=== PATIENT | female | born 1940 | race Caucasian/White ===

== ENCOUNTER 2017-03-04 09:30 | Emergency (ER) | payer MEDICARE, OTHER ==
[~2017-03-04] VITALS: Ht 167.6 cm; Wt 86.4 kg
[~2017-03-04 09:30] MED LIST: ALORA0.025 MG TOP; ASPIRIN CHEWABL81 MG PO; ATENOLOL50 MG PO; CALCIUM + D600 MG PO; CALCIUM 1200 PO; CALCIUM600 M3 PO; CLARITIN10 M1 PO; DETROL LA4 MG PO; FIBER THERAP0.52 GM PO; FISH OIL1200 MG OR; LEVOTHYROXIN88 MC1 PO; LIPITOR10 MG PO; LOSARTAN POT50 MG PO; MAXZIDE PO; MECLIZINE12.5 MG PO; MULTI 501 OR; OCUVIT1; OMEPRAZOLE40 MG PO; PRILOSEC20 MG PO; VITAMIN D1000 UNIT PO
[2017-03-04] MEDS ORDERED: EC-NAPROSYN500 MG PO (10:00)
[2017-03-04 11:01] VITALS: BP 189/79
== END 2017-03-04 11:09 | disposition home or self-care (01) ==
LOC: ED 09:30
DX: S01.01XA Laceration without foreign body of scalp, initial encounter (principal); S09.90XA Unspecified injury of head, initial encounter; W11.XXXA Fall on and from ladder, initial encounter; Y93.E9 Activity, other interior property and clothing maintenance; Y92.008 Other place in unspecified non-institutional (private) residence as the place of occurrence of the external cause

== ENCOUNTER 2017-03-12 08:47 | Day surgery (SDC) | payer MEDICARE, OTHER ==
[~2017-03-12] VITALS: Ht 167.6 cm; Wt 83.9 kg
[~2017-03-12 08:47] MED LIST changes: +EC-NAPROSYN500 MG PO
[2017-03-12] MEDS ORDERED: PERCOCET 5/325M1 TAB PO (11:27)
[2017-03-12 11:49] VITALS: BP 146/74
== END 2017-03-12 12:05 | disposition home or self-care (01) ==
LOC: ENDO 08:47
PROVIDERS: ATTEND Surgery
PROC: 06BY0ZC Excision of Hemorrhoidal Plexus, Open Approach (ICD-10-PCS; principal; 2017-03-12)
PROC: 0DJD8ZZ Inspection of Lower Intestinal Tract, Via Natural or Artificial Opening Endoscopic (ICD-10-PCS; 2017-03-12)
DX: K64.8 Other hemorrhoids (principal); Z12.11 Encounter for screening for malignant neoplasm of colon; K57.30 Diverticulosis of large intestine without perforation or abscess without bleeding
CPT/HCPCS: 46255; G0121; J0461; J2710